=== PATIENT | male | born 1935 | race Caucasian/White ===

== ENCOUNTER 2016-05-06 15:16 | Emergency (ER) | payer MEDICARE, BC ==
[~2016-05-06 15:16] MED LIST: ALEVE220 M1 PO; ASPIRIN EC81 M1 PO; AVELOX400 MG PO; BABY ASPIRIN81 MG PO; BACTRIM DS1 TA1 PO; CLARITIN-D1 TAB.SR PO; EQL FISH OIL 1,1 CA1 PO; FINASTERIDE5 M1 PO; FINASTERIDE5 MG PO; FLUOCINONIDE-E60 GM TP; MUCUS RELIEF400 MG PO; NORCO 5/325 TAB1 TAB PO; ONE DAILY FOR1 EACH PO; PAIN RELIEV PO
[2016-05-06 18:11] LABS: BASO % 0.6 % (0-2); EOS % 4.3 % (0-7); EOSINOPHIL ABSOLUTE COUNT 0.3 tho/cmm (0.0-0.7); HCT-HEMATOCRIT 39.6 % (36.0-53.5); HGB-HEMOGLOBIN 12.8 gm/dl (13.5-17.0); IMMATURE GRANULOCYTES ABSOLUTE 0.01 tho/cmm (0-0.03); IMMATURE GRANULOCYTES PERCENT 0.1 % (0-0.3); LYMPH % 19.8 % (20-45); LYMPH ABSOLUTE COUNT 1.4 tho/cmm (0.8-4.5); MCH (MEAN CORPUSCULAR HGB) 26.4 pg (28.0-32.0); MCHC MEAN CORPUSCULAR HGB CONC 32.3 % (32.0-36.0); MCV (MEAN CELL VOLUME) 81.8 fl (82.0-96.0); MEAN PLATELET VOLUME 10.6 cmc (9.4-12.4); MONO % 13.1 % (0-12); MONOCYTE ABSOLUTE COUNT 0.9 tho/cmm (0.0-1.2); NEUTROPHIL ABSOLUTE COUNT 4.2 tho/cmm (1.6-8.0); NEUTROPHIL-AUTOMATED 4.2 tho/cmm (1.6-8.0); NEUTROPHILS % 62.1 % (40-80); PLATELET COUNT 256 tho/cmm (150-450); RED BLOOD COUNT 4.84 mil/cmm (4.40-5.70); RED CELL DISTRIBUTION WIDTH 14.9 % (12.4-16.4); WHITE BLOOD COUNT 6.8 tho/cmm (4.0-10.0)
[2016-05-06 18:23] LABS: ANION GAP 12 mmol/L (0-20); BLOOD UREA NITROGEN 19 mg/dl (6-24); CALCIUM 9.3 mg/dl (8.5-10.5); CARBON DIOXIDE-VENOUS 28 mmol/L (22-32); CHLORIDE 104 mmol/l (96-110); CREATININE 1.06 mg/dl (0.60-1.30); GLUCOSE 151 mg/dL (70-110); POTASSIUM 4.1 mmol/L (3.7-5.1); SODIUM 140 mmol/L (135-145); eGFR VALUE FOR BLACK 75 mL/Min
[2016-05-06 18:48] LABS: PROCALCITONIN <0.05 ng/ml (0.05-0.09)
== END 2016-05-06 18:54 ==
LOC: EDMED 15:16
PROVIDERS: Physician Assistant
DX: R05 Cough (principal); Z88.0 Allergy status to penicillin